=== PATIENT | female | born 1960 | race Caucasian/White ===

== ENCOUNTER 2024-07-29 07:16 | Day surgery (SDC) | payer OTHER ==
[2024-07-25 15:25] VITALS: BMI 31.1
[2024-07-29 07:43] VITALS: RESP 16
[2024-07-29] MEDS ORDERED: BUPIVACAINE HCL/PF 0.5% (5MG/ML) 10 ML VIAL ONE (08:59)
[2024-07-29] MEDS ORDERED: LIDOCAINE HCL 1%, 10 MG/ML (20ML VIAL) ONE ×2 (08:59→09:45)
[2024-07-29] MEDS ORDERED: MIDAZOLAM HCL 2 MG/2 ML SINGLE DOSE VIAL ONE (09:22)
[2024-07-29] MEDS ORDERED: SUCCINYLCHOLINE CHLORIDE 200 MG/10 ML SYRINGE ONE (09:24)
[2024-07-29] MEDS ORDERED: PROPOFOL 40 ML ONE (09:24)
[2024-07-29] MEDS ORDERED: PROPOFOL 20 ML ONE (10:15)
[2024-07-29 11:14] VITALS: TEMP 97.3
[2024-07-29] MEDS ORDERED: IBUPROFEN 600 MG TABLET (FP) PO ONE (11:55)
[2024-07-29] MEDS: IBUPROFEN 600 MG TABLET (FP) PO ONE (11:57)
[2024-07-29] MEDS ORDERED: oxyCODONE HCL 5 MG TABLET PO PRN (12:12)
[2024-07-29] MEDS ORDERED: ONDANSETRON 4 MG/2 ML VIAL IVPUSH PRN (12:12)
[2024-07-29] MEDS ORDERED: IBUPROFEN 800 MG/8 ML IJ IVPB PRN (12:12)
[2024-07-29] MEDS ORDERED: LACTATED RINGERS SOLUTION 1,000 ML IV SCH (12:15)
[2024-07-29 12:26] VITALS: BP 132/78; PULSE 60
== END 2024-07-29 12:25 | disposition home or self-care (01) ==
LOC: FASU 07:16
PROVIDERS: ATTEND Podiatrist Foot & Ankle Surgery
PROC: 0QSN04Z Reposition Right Metatarsal with Internal Fixation Device, Open Approach (ICD-10-PCS; principal; 2024-07-29 09:43)
DX: M20.11 Hallux valgus (acquired), right foot (principal)
CPT/HCPCS: 28299; C1889; 73630-TC-RT-FY; 88305-TC; 88311-TC; C1713